=== PATIENT | female | born 1955 | race Caucasian/White ===

== ENCOUNTER 2020-12-28 11:46 | Inpatient (IN) | payer OTHER ==
[~2020-12-28] VITALS: Ht 152.4 cm; Wt 54.1 kg
[2020-12-28] MEDS ORDERED: TETANUS/DIPHTHERIA TOXOID [ADULT] 0.5 ML VIAL IM SCH (12:30)
[2020-12-28] MEDS ORDERED: LORAZEPAM 2 MG/ML 1 ML VIAL ONE (12:57)
[2020-12-28] MEDS ORDERED: LORAZEPAM 2 MG/ML 1 ML VIAL IM SCH (13:00)
[2020-12-28 13:22] LABS: BASOPHILS % (AUTO) 0.2 % (0.0-5.0); HEMATOCRIT 44.3 % (36-48); LYMPHOCYTES % (AUTO) 10.8 % (21.0-51.0); MEAN CORPUSCULAR HEMOGLOBIN 29.5 pg (27.0-33.0); MEAN CORPUSCULAR HGB CONC 33.6 g/dL (32.0-36.0); MEAN CORPUSCULAR VOLUME 87.7 fL (79-99); MONOCYTES % (AUTO) 2.8 % (3.0-13.0); NEUTROPHILS % (AUTO) 85.7 % (40.0-77.0); PLATELET COUNT (AUTO) 206 K/uL (130-400); RED BLOOD CELL COUNT(AUTO) 5.05 MIL/uL (4.00-5.50); RED CELL DISTRIBUTION WIDTH 12.7 % (11.0-15.5); WHITE BLOOD COUNT (AUTO) 21.1 K/uL (4.8-10.8)
[2020-12-28 13:23] LABS: APPEARANCE,URINE CLEAR (CLEAR); BILIRUBIN,URINE NEGATIVE (NEGATIVE); COLOR,URINE YELLOW (YELLOW); GLUCOSE, URINE (UA) >=1000 mg/dL (NEGATIVE); KETONES,URINE 40 mg/dL (NEGATIVE); LEUKOCYTE ESTERASE ,URINE NEGATIVE (NEGATIVE); NITRATE,URINE NEGATIVE (NEGATIVE); OCCULT BLOOD,URINE NEGATIVE (NEGATIVE); PROTEIN,URINE NEGATIVE (NEGATIVE); UROBILINOGEN,URINE 0.2 mg/dL (0.2-1.0)
[2020-12-28 13:30] LABS: AMPHET/METH SCREEN,URINE NEGATIVE (NEGATIVE); BARBITURATE SCREEN, URINE NEGATIVE (NEGATIVE); BENZODIAZEPINES SCREEN,URINE NEGATIVE (NEGATIVE); CANNABINOID SCREEN,URINE NEGATIVE (NEGATIVE); COCAINE SCREEN,URINE NEGATIVE (NEGATIVE); OPIATE SCREEN,URINE NEGATIVE (NEGATIVE); PHENCYCLIDINE SCREEN,URINE NEGATIVE (NEGATIVE)
[2020-12-28] MEDS ORDERED: LORAZEPAM 2 MG/ML 1 ML VIAL IVP SCH (13:30)
[2020-12-28 13:42] LABS: INR 0.97 (0.85-1.15); PROTHROMBIN TIME 10.6 SEC (9.6-11.6)
[2020-12-28 13:43] LABS: ALBUMIN 3.9 g/dL (3.5-5.0); B-TYPE NATRIURETIC PEPTIDE 11 pg/mL (0-100); CREATININE 0.6 mg/dL (0.5-1.5); PARTIAL THROMBOPLASTIN TIME 23.9 SEC (26.3-35.5)
[2020-12-28 13:48] LABS: BILIRUBIN,TOTAL 0.4 mg/dL (0.2-1.0); TOTAL PROTEIN, SERUM 7.3 g/dL (6.0-8.3)
[2020-12-28 13:52] LABS: POTASSIUM 2.8 mmol/L (3.5-5.1)
[2020-12-28 14:17] LABS: BACTERIA,URINE Few /HPF (None Seen)
[2020-12-28 14:18] LABS: RBC,URINE None Seen /HPF (0-1); SQUAMOUS EPITHELIAL CELL,UR 0-2 /HPF (0-2); WBC,URINE None Seen /HPF (0-1)
[2020-12-28] MEDS ORDERED: ZOSYN 3.375GM+NS 50ML 50 ML IV ONE (14:30)
[2020-12-28] MEDS ORDERED: 0.9%NACL 1000ML 1,000 ML IV ONE ×2 (14:30→19:30)
[2020-12-28] MEDS ORDERED: 0.9%NACL 1000ML 1,365 ML IV ONE ×2 (14:30)
[2020-12-28] MEDS ORDERED: POTASSIUM BICARB/CIT AC 25 MEQ TABLET.EFF PO ONE (14:30)
[2020-12-28] MEDS ORDERED: IOHEXOL 350 MG/ML 100ML INFUS..BTL IV ONE ×2 (14:39→14:52)
[2020-12-28] MEDS ORDERED: HALOPERIDOL INJ 5 MG/ML VIAL ONE (15:28)
[2020-12-28] MEDS ORDERED: DiphenhydrAMINE HCL 50 MG/ML VIAL ONE (15:32)
[2020-12-28 16:20] VITALS: BP 150/75
[2020-12-28] MEDS ORDERED: HALOPERIDOL INJ 5 MG/ML VIAL IM ONE (16:30)
[2020-12-28] MEDS ORDERED: DiphenhydrAMINE HCL 50 MG/ML VIAL IV ONE (16:30)
[2020-12-28 17:45] VITALS: BP 147/87
[2020-12-28 19:30] VITALS: BP 135/71
[2020-12-28] MEDS ORDERED: POTASSIUM CHLORIDE 10% ELIXIR 20 MEQ/15 ML UDCUP PO PRN (20:30)
[2020-12-28] MEDS ORDERED: KCL 20 MEQ ERTAB PO PRN (20:30)
[2020-12-28] MEDS: 0.9%NACL 1000ML 1,000 ML IV SCH (20:30)
[2020-12-28] MEDS ORDERED: MORPHINE 2 MG SYG IV PRN ×2 (20:30→21:00)
[2020-12-28] MEDS ORDERED: ONDANSETRON 4MG INJ IV PRN (20:30)
[2020-12-28] MEDS ORDERED: POTASSIUM CHLORIDE 20MEQ/100ML 100 ML IV PRN (20:30)
[2020-12-28] MEDS ORDERED: LIDOCAINE HCL-MPF 1% 2ML VIAL IV PRN (20:30)
[2020-12-28 20:59] LABS: HEMOGLOBIN A1C 12.1 % (4.0-6.0)
[2020-12-28] MEDS: ZOSYN 3.375GM+NS 50ML 50 ML IV SCH (21:00)
[2020-12-28] MEDS ORDERED: INSULIN HUMULIN R 100 UNIT/ML 3ML SQ SCH (21:00)
[2020-12-28] MEDS: FAMOTIDINE 20MG VIAL IV SCH (21:00)
[2020-12-28 23:36] VITALS: BP 146/67
[2020-12-29] MEDS: ZOSYN 3.375GM+NS 50ML 50 ML IV SCH ×3 (04:03→20:41)
[2020-12-29] MEDS: 0.9%NACL 50ML 50 ML IV SCH ×4 (05:00→20:41)
[2020-12-29 05:26] LABS: BASOPHILS % (AUTO) 0.2 % (0.0-5.0); EOSINOPHILS % (AUTO) 0.2 % (0.0-8.0); HEMATOCRIT 45.8 % (36-48); LYMPHOCYTES % (AUTO) 19.9 % (21.0-51.0); MEAN CORPUSCULAR HEMOGLOBIN 29.2 pg (27.0-33.0); MEAN CORPUSCULAR HGB CONC 33.8 g/dL (32.0-36.0); MEAN CORPUSCULAR VOLUME 86.3 fL (79-99); MONOCYTES % (AUTO) 5.1 % (3.0-13.0); NEUTROPHILS % (AUTO) 74.3 % (40.0-77.0); PLATELET COUNT (AUTO) 203 K/uL (130-400); RED BLOOD CELL COUNT(AUTO) 5.31 MIL/uL (4.00-5.50); RED CELL DISTRIBUTION WIDTH 12.8 % (11.0-15.5); WHITE BLOOD COUNT (AUTO) 12.1 K/uL (4.8-10.8)
[2020-12-29 05:38] LABS: CREATININE 0.5 mg/dL (0.5-1.5); MAGNESIUM 1.8 mg/dL (1.80-2.40); PHOSPHORUS 3.5 mg/dL (2.5-4.9); POTASSIUM 3.9 mmol/L (3.5-5.1)
[2020-12-29] MEDS ORDERED: METRONIDAZOLE 500MG/100ML BAG 100 ML IVPB SCH (06:00)
[2020-12-29 06:38] VITALS: BP 143/70
[2020-12-29] MEDS: 0.9%NACL 1000ML 1,000 ML IV SCH ×2 (08:34→15:57)
[2020-12-29 08:44] VITALS: BP 120/75
[2020-12-29 09:30] VITALS: BP 128/59
[2020-12-29] MEDS: FAMOTIDINE 20MG VIAL IV SCH ×2 (09:33→20:36)
[2020-12-29] MEDS: ENOXAPARIN SODIUM 30 MG/0.3 ML SQ SCH (09:35)
[2020-12-29 11:00] VITALS: BP 133/57
[2020-12-29 16:00] VITALS: BP 160/77
[2020-12-29] MEDS ORDERED: GLUCAGON 1MG KIT 1 MG ML IM PRN (16:00)
[2020-12-29] MEDS ORDERED: DEXTROSE 50%-WATER 50 ML DISP.SYRIN IV PRN (16:00)
[2020-12-29] MEDS: INSULIN HUMULIN R 100 UNIT/ML 3ML SQ SCH ×3 (16:30→20:38)
[2020-12-29 19:27] VITALS: BP 133/67
[2020-12-29] MEDS: INSULIN GLARGINE 100 UNITS/ML 10 ML VIAL SQ SCH (20:37)
[2020-12-30] VITALS: BP 111/60
[2020-12-30] MEDS: ZOSYN 3.375GM+NS 50ML 50 ML IV SCH (04:53)
[2020-12-30] MEDS: 0.9%NACL 50ML 50 ML IV SCH ×4 (04:53→20:41)
[2020-12-30 05:00] VITALS: BP 117/60
[2020-12-30] MEDS: INSULIN HUMULIN R 100 UNIT/ML 3ML SQ SCH ×4 (05:54→20:40)
[2020-12-30] MEDS: 0.9%NACL 1000ML 1,000 ML IV SCH (05:55)
[2020-12-30 06:41] LABS: BASOPHILS % (AUTO) 0.3 % (0.0-5.0); EOSINOPHILS % (AUTO) 0.7 % (0.0-8.0); HEMATOCRIT 40.9 % (36-48); LYMPHOCYTES % (AUTO) 31.2 % (21.0-51.0); MEAN CORPUSCULAR HEMOGLOBIN 28.8 pg (27.0-33.0); MEAN CORPUSCULAR HGB CONC 32.8 g/dL (32.0-36.0); MEAN CORPUSCULAR VOLUME 87.8 fL (79-99); NEUTROPHILS % (AUTO) 63.5 % (40.0-77.0); PLATELET COUNT (AUTO) 167 K/uL (130-400); RED BLOOD CELL COUNT(AUTO) 4.66 MIL/uL (4.00-5.50); RED CELL DISTRIBUTION WIDTH 12.9 % (11.0-15.5); WHITE BLOOD COUNT (AUTO) 10.7 K/uL (4.8-10.8)
[2020-12-30 06:50] LABS: CREATININE 0.5 mg/dL (0.5-1.5); MAGNESIUM 1.8 mg/dL (1.80-2.40); POTASSIUM 3.4 mmol/L (3.5-5.1)
[2020-12-30] MEDS: INSULIN GLARGINE 100 UNITS/ML 10 ML VIAL SQ SCH ×4 (07:30→20:41)
[2020-12-30] MEDS: FAMOTIDINE 20MG VIAL IV SCH (08:03)
[2020-12-30] MEDS: ENOXAPARIN SODIUM 30 MG/0.3 ML SQ SCH ×2 (08:04→09:00)
[2020-12-30] MEDS: FAMOTIDINE 20MG TAB PO SCH ×2 (09:00→20:33)
[2020-12-30] MEDS ORDERED: CITALOPRAM 20 MG TABLET PO SCH ×2 (17:00→21:00)
[2020-12-30] MEDS ORDERED: MEMANTINE HCL 5 MG TABLET PO SCH (17:00)
[2020-12-30] MEDS: METFORMIN HCL 500 MG TABLET PO SCH (17:08)
[2020-12-30 19:30] VITALS: BP 130/71
[2020-12-30] MEDS ORDERED: RISPERIDONE 1 MG TABLET PO SCH (21:00)
[2020-12-31 04:00] VITALS: BP 118/67
[2020-12-31] MEDS: INSULIN HUMULIN R 100 UNIT/ML 3ML SQ SCH ×5 (06:18→16:18)
[2020-12-31] MEDS: INSULIN GLARGINE 100 UNITS/ML 10 ML VIAL SQ SCH (06:18)
[2020-12-31] MEDS ORDERED: DIVA125T2 PO (07:19)
[2020-12-31] MEDS ORDERED: QUET100T PO (07:19)
[2020-12-31] MEDS ORDERED: QUET200T PO (07:19)
[2020-12-31] MEDS ORDERED: TRAZ-187 PO (07:19)
[2020-12-31 08:02] VITALS: BP 109/58
[2020-12-31] MEDS ORDERED: RISPERIDONE 1 MG TABLET PO SCH (09:00)
[2020-12-31] MEDS ORDERED: MEMANTINE HCL 5 MG TABLET PO SCH (09:00)
[2020-12-31] MEDS: ENOXAPARIN SODIUM 30 MG/0.3 ML SQ SCH (09:00)
[2020-12-31] MEDS: METFORMIN HCL 500 MG TABLET PO SCH (09:11)
[2020-12-31] MEDS: FAMOTIDINE 20MG TAB PO SCH (09:12)
[2020-12-31] MEDS ORDERED: RISP1TAB89 PO ×2 (11:21)
[2020-12-31] MEDS ORDERED: MEMA5TAB PO (11:21)
[2020-12-31] MEDS: 0.9%NACL 50ML 50 ML IV SCH (13:00)
[2020-12-31] MEDS ORDERED: METF-444 PO (16:17)
[2020-12-31] MEDS ORDERED: CITA-106 PO (16:17)
== END 2020-12-31 19:40 | disposition home or self-care (01) | DRG 871 ==
LOC: EDH 11:46 → EDHIP 11:47 → 4DH 12-29 09:46
PROVIDERS: ADMIT Hospitalist; ATTEND Hospitalist
PROC: 3E0234Z Introduction of Serum, Toxoid and Vaccine into Muscle, Percutaneous Approach (ICD-10-PCS; principal; 2020-12-28)
DX: A41.9 Sepsis, unspecified organism (principal); G93.41 Metabolic encephalopathy; K52.9 Noninfective gastroenteritis and colitis, unspecified; I10 Essential (primary) hypertension; E87.6 Hypokalemia; F03.90 Unspecified dementia, unspecified severity, without behavioral disturbance, psychotic disturbance, mood disturbance, and anxiety; Z53.20 Procedure and treatment not carried out because of patient's decision for unspecified reasons; S00.211A Abrasion of right eyelid and periocular area, initial encounter; F17.210 Nicotine dependence, cigarettes, uncomplicated; R33.9 Retention of urine, unspecified; E11.65 Type 2 diabetes mellitus with hyperglycemia; Z20.822 Contact with and (suspected) exposure to COVID-19; Z90.49 Acquired absence of other specified parts of digestive tract; Z23 Encounter for immunization
CPT/HCPCS: 36415; 70450; 71045; 72125; 74177; 80048; 80053; 80305; 81001; 82140; 82550; 82948; 83036; 83605; 83735; 83880; 84100; 84132; 84145; 84484; 85025; 85610; 85730; 87040; 87088; 87635; 87804; 87880; 90714; 93005; C9803; G0378; J1200; J1630; J1650; J1815; J2060; J2543; J3490; J7030; Q9967